=== PATIENT | male | born 1985 | race Two or more races ===

== ENCOUNTER 2020-08-06 19:40 | Emergency (ER) | payer MEDICAID ==
[~2020-08-06] VITALS: Ht 172.7 cm; Wt 87.6 kg
[2020-08-06] MEDS ORDERED: DIPHENHYDRAMINE 50 MG/ML, 1ML IVPush ONE (20:00)
[2020-08-06] MEDS ORDERED: SODIUM CHLORIDE FLUSH 10ML SYR IVF ONE (20:00)
[2020-08-06] MEDS ORDERED: ACETAMINOPHEN 500 MG TABLET PO ONE (20:00)
[2020-08-06] MEDS ORDERED: SODIUM CHLORIDE 0.9% 1,000ML IVBOLUS ONE (20:00)
[2020-08-06] MEDS ORDERED: KETOROLAC 30 MG/1 ML IVPush ONE (20:00)
[2020-08-06] MEDS ORDERED: PROCHLORPERAZINE 5 MG/ML, 2ML IVPush ONE (20:00)
--- NOTE | 2020-08-06 21:41 | NUR ---
PT AMBULATED TO ROOM WITH A STEADY GAIT
[2020-08-06] MEDS ORDERED: PROCHLORPERAZINE 5 MG/ML, 2ML ONE (21:54)
[2020-08-06] MEDS ORDERED: ACETAMINOPHEN 500 MG TABLET ONE (21:54)
[2020-08-06] MEDS ORDERED: DIPHENHYDRAMINE 50 MG/ML, 1ML ONE (21:54)
[2020-08-06] MEDS ORDERED: KETOROLAC 30 MG/1 ML ONE (21:54)
[2020-08-06] MEDS ORDERED: IBUPROFEN 600 MG TABLET PO ONE (22:30)
[2020-08-06] MEDS ORDERED: IBUPROFEN 600 MG TABLET ONE (22:30)
[2020-08-07] VITALS: BP 113/88
== END 2020-08-07 00:21 | disposition home or self-care (01) ==
LOC: ED 21:52
DX: G44.52 New daily persistent headache (NDPH) (principal)
CPT/HCPCS: 70450; 99284